=== PATIENT | female | born 1955 | race Caucasian/White ===

== ENCOUNTER 2020-08-23 08:59 | Outpatient (CLI) | payer MEDICARE, SELFPAY ==
--- NOTE | ~2020-08-23 | MM_ITS ---
EXAMINATION: MM screening theo BI w yogesh HISTORY: Screening mammogram TECHNIQUE: Craniocaudal and mediolateral oblique 3-D tomosynthesis images were obtained and synthetic 2-D images were generated. CAD analysis was submitted and interpreted. COMPARISON: 08/18/2019, 12/09/2017 bilateral digital screening mammogram examinations BREAST PARENCHYMAL COMPOSITION: There are scattered areas of fibroglandular density. FINDINGS: Occasional benign calcifications are noted bilaterally. There is no evidence of suspicious mass, calcification, or architectural distortion to suggest malignancy in either breast. There has be en no suspicious interval change. IMPRESSION: 1. No mammographic evidence of malignancy. 2. Recommend routine screening mammography in one year. BI-RADS Category 2: Benign finding(s). Reviewed, dictated and finalized at location A.
--- NOTE | ~2020-08-23 | CT_ITS ---
EXAMINATION: CT lung screening DATE: 08/23/2020 09:24 INDICATION: Smoker TECHNIQUE: Computed tomography (CT) of the chest was performed without intravenous contrast. The dose -length product was 64.27 mGy-cm. Automated exposure control and iterative reconstruction technique w ere employed. COMPARISON: CT dated 08/18/2019 FINDINGS: There is a borderline sized 9 mm right paratracheal lymph node, unchanged, likely reactive. No significant pleural or pericardial effusion. Heart size is normal. Mild emphysema. There is a 3 m m left upper lobe nodule, perifissural. There is a subsolid nodule in the left upper lobe measuring 3 -4 mm. There is apical pleural thickening/scarring. No endobronchial lesions. There is a 2 mm nodule left upper lobe, image 41. No focal airspace consolidation. No pneumothorax. No osteolytic or osteobl astic lesions. IMPRESSION: 1. Lung-RADS category 2: Benign appearance or behavior. Continue annual screening with noncontrast lo w-dose chest CT in 12 months. Reviewed, dictated and finalized at location A. IMPRESSION: 1. Lung-RADS category 2: Benign appearance or behavior. Continue annual screeni ng with noncontrast low-dose chest CT in 12 months.
--- NOTE | ~2020-08-23 | DEXA_ITS ---
Bone Density Report Name: Estela Hightower Age: 65 Sex: Female Ethnicity: White Date of : 1955 Indication: osteopenia;postmenopausal Referring Provider: Myles Lawson Study: Bone densitometry was performed. Exam Date: August 23, 2020 Accession number: [id number] Bone Density: Region BMD T-score Z-score Classification AP Spine (L1-L4) 0.870 -1.6 0.3 Osteopenia Femoral Neck (Left) 0.716 -1.2 0.4 Osteopenia Total Hip (Left) 0.826 -1.0 0.4 Normal Total Hip Bilateral Avg 0.806 -1.2 0.3 Osteopenia Femoral Neck (Right) 0.721 -1.1 0.5 Osteopenia Total Hip (Right) 0.786 -1.3 0.1 Osteopenia World Health Organization criteria for BMD impression classify patients as: Normal (T-score at or above -1.0), Osteopenia (T-score between -1.0 and -2.5), or Osteoporosis (T-score at or below -2.5). 10-year Fracture Risk(1): Major Osteoporotic Fracture 8.9% Hip Fracture 1.5% Reported Risk Factors: [place] (), Neck BMD=0.716, BMI=26.0, smoking (1) FRAX(R) Version 3.08. Fracture probability calculated for an untreated patient. Fracture probability may be lower if the patient has received treatment. Previous Exams: Region Exam Age BMD T-score BMD Change BMD Change Date g/cm2 vs Baseline vs Previous AP Spine(L1-L4) 08/23/2020 65 0.870 -1.6 -0.020(-2.2%) -0.020(-2.2%) 12/11/2017 62 0.889 -1.4 Total Hip(Left) 08/23/2020 65 0.826 -1.0 -0.010(-1.2%) -0.010(-1.2%) 12/11/2017 62 0.836 -0.9 Total Hip(Right) 08/23/2020 65 0.786 -1.3 -0.033(-4.0%)* -0.033(-4.0%)* 12/11/2017 62 0.819 -1.0 *Denotes significance at 95% confidence level, LSC for AP Spine = 0.022 g/cm2, LSC for Total Hip = 0.027 g/cm2 Clinical Information Provided by Patient: Smokes Has used the following medications: Vitamin D, Calcium Patient maximum height was 59.5 Menopause Age: 43 No regular weight bearing exercise Onset of menses at age 10 Number of children 2 Impression: The patient has low bone mass, based on the Total Spine T-score. The patient has an estimated ten-year risk of hip fracture of 1.5% and an estimated ten-year risk of major fracture of 8.9%, based on the WHO FRAX algorithm. The patient has risk factors, including: smoking. The BMD for the Total Hip(Right) decreased, changing by -4.0% since the last DXA exam. Discussion: BONE DENSITY IS LOW AT ONE OR MORE SKELETAL SITES. This patient's lowest T-score is low at one or more skeletal
== END 2020-08-23 09:00 | disposition home or self-care (01) ==
PROVIDERS: PCP Family Medicine; Visit Provider Physician Assistant
DX: Z12.2 Encounter for screening for malignant neoplasm of respiratory organs (principal); Z87.891 Personal history of nicotine dependence; Z12.31 Encounter for screening mammogram for malignant neoplasm of breast; Z78.0 Asymptomatic menopausal state; M85.88 Other specified disorders of bone density and structure, other site; M85.852 Other specified disorders of bone density and structure, left thigh; M85.851 Other specified disorders of bone density and structure, right thigh
CPT/HCPCS: 77063; 77067; 77080; G0297

== ENCOUNTER 2022-10-18 12:51 | Outpatient (CLI) | payer MEDICARE, SELFPAY ==
--- NOTE | ~2022-10-18 | CT_ITS ---
EXAMINATION: CT lung screening DATE: 10/18/2022 13:13 INDICATION: Personal history of nicotine dependence, current smoker with 50 pack year history TECHNIQUE: Computed tomography (CT) of the chest was performed without intravenous contrast. The dose -length product (DLP) was 64.84 mGy-cm. Automated exposure control and iterative reconstruction techn [employer] were employed. COMPARISON: 08/23/2020 FINDINGS: There is mild emphysema. There are multiple small stable nodules of the lungs. There is a n ew 3 mm nodule in the left upper lobe. The lungs are free of acute opacities. No pleural effusion or pneumothorax. No pathologically enlarged thoracic lymph nodes are identified. The heart size is shahana l. Calcified coronary artery atherosclerosis is noted. IMPRESSION: 1. Lung-RADS category 2: Benign appearance or behavior. Continue annual screening with noncontrast lo w-dose chest CT in 12 months. Reviewed, dictated and finalized at location F. N CONTRACT REPRESENTATIVE IMPRESSION: 1. Lung-RADS category 2: Benign appearance or behavior. Continue annual screeni ng with noncontrast low-dose chest CT in 12 months.
== END 2022-10-18 12:52 | disposition home or self-care (01) ==
PROVIDERS: PCP Family Medicine; Visit Provider Physician Assistant
DX: Z12.2 Encounter for screening for malignant neoplasm of respiratory organs (principal); Z87.891 Personal history of nicotine dependence
CPT/HCPCS: 71271

== ENCOUNTER 2022-12-18 14:00 | Outpatient (CLI) | payer MEDICARE, SELFPAY ==
--- NOTE | ~2022-12-18 | MM_ITS ---
EXAMINATION: MM screening theo BI w yogesh HISTORY: Screening mammogram TECHNIQUE: Craniocaudal and mediolateral oblique 3-D tomosynthesis images were obtained and synthetic 2-D images were generated. CAD analysis was submitted and interpreted. COMPARISON: 08/23/2020, 08/18/2019, 12/09/2017 BREAST PARENCHYMAL COMPOSITION: The breasts are heterogeneously dense, which may obscure small masses . FINDINGS: RIGHT BREAST: No suspicious mass, calcification, or architectural distortion are identified to sugges t malignancy. There has been no suspicious interval change. LEFT BREAST: There is a possible mass in the anterior/middle third of the inner left breast best appr eciated 5 cm from the nipple on the craniocaudal view. IMPRESSION: 1. Possible left breast mass. 2. Additional mammographic views and possible breast ultrasound are recommended. BI-RADS Category 0: Incomplete: Needs additional imaging evaluation. Reviewed, dictated and finalized at location A. THCARE CUSTOMER SERVICE IMPRESSION: 1. Possible left breast mass. 2. Additional mammographic views and possible breast ultrasound are recommended . BI-RADS Category 0: Incomplete: Needs additional imaging evaluation.
--- NOTE | ~2022-12-18 | DEXA_ITS ---
Bone Density Report Name: LAVINIA CAMPOS Age: 67 Sex: Female Ethnicity: White Date of : 1955 Indication: postmenopausal; screening for osteoporosis; height loss; Referring Provider: KEITH ORDONEZ Study: Bone densitometry was performed. Exam Date: December 18, 2022 Accession number: [id number] Bone Density: Region BMD T-score Z-score Classification AP Spine(L1-L4) 0.819 -2.1 0.0 Osteopenia Femoral Neck (Left) 0.669 -1.6 0.1 Osteopenia Total Hip (Left) 0.790 -1.2 0.2 Osteopenia Femoral Neck (Right) 0.544 -2.8 -1.0 Osteoporosis Total Hip (Right) 0.754 -1.5 -0.1 Osteopenia Total Hip Mean 0.772 -1.4 0.1 Osteopenia World Health Organization criteria for BMD impression classify patients as: Normal (T-score at or above -1.0), Osteopenia (T-score between -1.0 and -2.5), or Osteoporosis (T-score at or below -2.5). 10-year Fracture Risk: FRAX not reported because: Some T-score for Spine Total or Hip Total or Femoral Neck at or below -2.5 Clinical Information Provided by Patient: Smokes Has used the following medications: Vitamin D Patient maximum height was 59.5 Menopause Age: 38 No regular weight bearing exercise Does not regularly consume dairy products Drinks caffeinated beverages Onset of menses at age 8 Number of children 2 Impression: The patient has osteoporosis, based on the Right Femoral Neck T-score. The patient has risk factors, including: smoking. Discussion: INCREASED RISK OF FRACTURE. BONE DENSITY IS UNDESIRABLY LOW AT ONE OR MORE SKELETAL SITES, CONSISTENT WITH POSTMENOPAUSAL OSTEOPOROSIS. This patient's lowest T-score meets the World Health Organization's (WHO) criteria for osteoporosis at one or more sites (T-score -2.5 or below). In untreated patients, the risk of osteoporotic fracture increases approximately two-fold for each 1.0 SD decrease in T-score. Low bone density is not the only risk factor for fracture; also consider factors such as patient's age, frailty or poor health, risk of falling, risk of injury, previous osteoporotic fracture, family history of osteoporosis, cigarette smoking, low body weight, etc. Not everyone with low bone mineral density has osteoporosis; osteomalacia and other metabolic bone disorders should also be considered. Patients who have osteoporosis should be evaluated for specific diseases and conditions (secondary causes) that may cause or contribute to bone loss. The [place] Association of Clinical Endocrinologists (AACE) and National Osteoporosis Foundation (NOF) recommend pharmacologic intervention for all postmenopausal women whose T-score is in this range. The patient should follow a healthful lifestyle (good nutrition with adequate calcium and vitamin D, and appropriate weight-bearing exercise). Follow-Up: Consider a repeat BM
== END 2022-12-18 14:01 | disposition home or self-care (01) ==
PROVIDERS: PCP Family Medicine; Visit Provider Physician Assistant
DX: Z12.31 Encounter for screening mammogram for malignant neoplasm of breast (principal); R92.8 Other abnormal and inconclusive findings on diagnostic imaging of breast; M85.80 Other specified disorders of bone density and structure, unspecified site; M85.89 Other specified disorders of bone density and structure, multiple sites; M81.0 Age-related osteoporosis without current pathological fracture
CPT/HCPCS: 77063; 77067; 77080

== ENCOUNTER 2023-01-04 11:48 | Outpatient (CLI) | payer MEDICARE, SELFPAY ==
--- NOTE | ~2023-01-04 | MMUS_ITS ---
EXAMINATION: MM diagnostic theo LT w yogesh, US breast LT limited HISTORY: Follow-up left breast asymmetry TECHNIQUE: Additional 3-D tomosynthesis images of the left breast were performed and synthetic 2-D im ages were generated. CAD analysis was submitted and interpreted. High resolution Limited left breast ultrasound was performed. COMPARISON: 12/18/2022 BREAST PARENCHYMAL COMPOSITION: BREAST PARENCHYMAL COMPOSITION: There are scattered areas of fibroglandular density. FINDINGS: MAMMOGRAPHIC FINDINGS: There is a persistent focal asymmetry in the upper inner quadrant of the left breast, middle third wi th ill-defined margins. ULTRASOUND: Limited left breast ultrasound: At 11:00, 3 cm from the nipple, there is a slightly irregular shaped oval hypoechoic mass without internal vascularity or significant posterior features. This mass measur es 9 x 5 mm greatest axial dimension. IMPRESSION: 1. Irregular shaped 9 mm left breast mass at 11:00, 3 cm from the nipple. 2. Ultrasound-guided left breast biopsy recommended.. BI-RADS category 4, suspicious findings. Reviewed, dictated and finalized at location A. IRATORY TECHNICIAN IMPRESSION: 1. Irregular shaped 9 mm left breast mass at 11:00, 3 cm from the nipple. 2. Ultrasound-guided left breast biopsy recommended.. BI-RADS category 4, suspicious findings.
== END 2023-01-04 11:49 | disposition home or self-care (01) ==
LOC: ANHIMG 11:48
PROVIDERS: PCP Family Medicine; Visit Provider Physician Assistant
DX: R92.8 Other abnormal and inconclusive findings on diagnostic imaging of breast (principal)
CPT/HCPCS: 76642; 77061; 77065; G0279

== ENCOUNTER 2023-01-17 10:08 | Outpatient (CLI) | payer MEDICARE, SELFPAY ==
--- NOTE | ~2023-01-17 | MMUS_ITS ---
EXAMINATION: US GUIDED NEEDLE BIOPSY DATE: 01/17/2023 12:40 CASING INSPECTOR INDICATION: Left 11:00 breast mass TECHNIQUE AND FINDINGS: The risks and potential benefits of the procedure were discussed with the patient, and written inform ed consent was obtained. Timeout procedure was performed. After sterile preparation of the left breas t, 1% lidocaine was utilized for local anesthesia. A 14G spring-loaded biopsy gun needle was advanced to the edge of the region of interest from a later al approach utilizing sonographic guidance. A total of three tissue core samples were obtained throu gh the lesion. An Inrad tissue marker clip was then placed at the biopsy site. Hemostasis was achiev ed. A sterile bandage was applied. The patient tolerated procedure well and there was no evidence of immediate complication. The patien t was given verbal instructions prior to departing from the department. A two view mammogram was perf ormed to document tissue marker clip placement, but the tissue marker was not evident, not having suc cessfully deployed. Due to the presence of hematoma, accurate marker placement could not be a shared and no additional marker placement was attempted. The tissue samples were submitted to surgical patho logy for histologic analysis. IMPRESSION: 1. Successful ultrasound guided biopsy of left 11:00 breast mass with failure of biopsy marker place ment. Please refer to pathology report for histologic analysis. Reviewed, dictated and finalized at Location A. Reviewed, dictated and finalized at location A. NG INSPECTOR IMPRESSION: 1. Successful ultrasound guided biopsy of left 11:00 breast mass with failure of biopsy marker placement. Please refer to pathology report for histologic shamir lysis.
== END 2023-01-17 10:09 | disposition home or self-care (01) ==
PROVIDERS: PCP Family Medicine; Visit Provider Physician Assistant
DX: R92.8 Other abnormal and inconclusive findings on diagnostic imaging of breast (principal)
CPT/HCPCS: 19083; 88305; 88342; 88360; A4648

== ENCOUNTER 2023-04-10 06:54 | Day surgery (SDC) | payer MEDICARE, SELFPAY ==
[2023-04-04 09:35] VITALS: BMI 22.1
--- NOTE | 2023-04-04 09:54 | PC.NURSE ---
Report to the Outpatient Waiting Room, entrance under the green pavilion located off [facility], at time ____729___ on date ___04/10/23____. Planned Procedure Time: __1000 . (NEEDLE LOCALIZATION @ 0830) Time changes happen often and if your time is changed the preop area will call you the afternoon before. - You and your visitor will be asked to self-screen and do not enter if you have any COVID symptoms. - A mask is optional within the hospital at this time. Patients may have clear liquids (water, carbonated beverages, clear teas, apple juice) until 3 hours prior to surgery (0700 AM) with a maximum of 20 ounces. - No food from midnight until time of surgery - Infants may have breast milk until 4 hours before surgery, infant formula 6 hours prior to surgery. - Children will be allowed to drink immediately following surgery. If applicable, please bring a bottle or sippy cup to assist with drinking. Juice, water, soda, and popsicles are readily available. For infants on formula, please bring formula the day of surgery. Pacifiers are allowed. Take the following medications with a SIP of water the morning of surgery: AMLODIPINE, METOPROLOL DO NOT STOP ANY OF YOUR OTHER PRESCRIPTION MEDICATIONS PRIOR TO SURGERY ?EXCEPT THE FOLLOWING Medications to discontinue per physician N/A Date to take last dose Please no make-up, nail djiboutian, hairspray, perfume, deodorant, or body powder the day of surgery. No jewelry (including any body piercings) or valuables the day of surgery, leave them at home. Please take a shower or bath the night before, or the morning of, surgery with an antibacterial soap. Wear comfortable, loose fitting clothing. Children are encouraged to wear pajamas. - Jewelry must be removed prior to entering the operating room. Rings and piercings that are not removed may be cut off. - The hospital will not accept responsibility for valuables. - Please leave all valuables, including medications, at home the day of surgery. If you are going home after surgery, a licensed operator and truck driver must drive you home. - NO public transportation without another adult if you receive anesthesia. - We recommend that an adult stay with you for 24 hours following discharge. - We also recommend that you do not drive, make important decision, drink alcoholic beverages, or take any drugs that were not prescribed by your health care provider for at least 24 hours after your discharge time. For Pediatric surgeries, we recommend two adults accompany the child home. Follow any additional instructions given to you from your surgeon. If you or anyone in your household have experienced Covid symptoms in the past week, please notify your surgeon or the nurse liaison at the phone number below for possible testing. Telephone instructions given to ____PT and asked if any additional questions and then verbalized understanding. Patient advised to call surgeon office or pre surgery nurse liaison [phone] if any additional questions.
--- NOTE | 2023-04-09 18:45 | PM.SD2 ---
Same Day Admit/Disch: HPI History of Present Illness Chief complaint: left breast cancer Narrative: Estela iHghtower is a 67 year old female who was noted to have a 9mm upper inner quadrant (11:00) left breast lesion on US. 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 She developed a 4 cm hematoma of the breast after the biopsy. The hematoma has since resolved and patient is now taken to surgery for wire localization, left breast lumpectomy as well as left axillary sentinel node biopsy. [facility] Past Medical History Medical History Normal colonoscopy 2017 Stable angina Tobacco use Surgical History Surgical History History of repair of rotator cuff History of tonsillectomy History of tubal ligation Hx of breast biopsy Family History Family History Mother , age 65 Pancreatic cancer Hyperlipidemia Anemia Father Family history of elevated blood lipids Malignant neoplasm of prostate Bladder cancer Grandparent Cerebrovascular accident Family history of throat cancer Grandparent Cerebrovascular accident Family history of malignant neoplasm of urinary bladder Mother Family history of pancreatic cancer Father Family history of malignant neoplasm of urinary bladder Social History Social History Smoking packs per day: 0.5 Smoking cigarettes per day: 10.0 Years smoked: 30 Smoking pack-years: 15.00 Smoking status: Current every day smoker Tobacco type: cigarettes Alcohol intake: current Drinks per week: 6 Alcohol use details: WHITE WINE Substance use: never Substance use type: does not use Lack of Transportation: No Lack of Food: Never True Current Housing: I Have Housing Concerned About Future Housing: No Difficulty Paying Gas/Electric Bills: No Difficulty Paying for Meds: No Currently Unemployed: No Education: Master's Degree or Higher Difficulty w/ Childcare or Family Care: No Living arrangements: with family Spiritual care concerns: No Same Day Admit/Disch: Med Pre-admit Medications Home Medications Medication Instructions Recorded Confirmed Type cholecalciferol (vitamin D3) 25 1,000 unit PO DAILY 10/20/19 04/04/23 History mcg (1,000 unit) capsule metoprolol succinate 100 mg See Rx Instructions .Route 09/20/22 04/04/23 Rx tablet,extended release 24 hr .COMPLEX #90 tabs ezetimibe 10 mg tablet See Rx Instructions .Route 12/04/22 04/04/23 Rx .COMPLEX #90 tabs amlodipine 5 mg tablet See Rx Instructions .Route 03/25/23 04/04/23 Rx .COMPLEX #90 tabs ibuprofen 600 mg tablet 600 mg PO Q6H PRN pain #14 tabs 04/10/23 Rx oxycodone-acetaminophen 5 mg-325 0.5 - 1 tablet PO Q6H PRN pain #12 04/10/23 Rx mg tablet tabs Exam Const: General: cooperative, comfortable, no acute distress, alert, awake and thin Nutritional Appearance: thin Orientation/consciousness: patient oriented x3 and No confusion HENMT: Head: normocephalic and atraumatic Mouth: Yes Normal oral and palatal mucosa present Eyes: Conjunctivae: conjunctivae normal Pupils: Equal, round and reactive pupils present EOM: EOMs intact bilaterally Neck: Neck: normal visual inspection, no lymphadenopathy and nontender Chest: Breast/axilla inspection: normal inspection of the breasts and normal inspection of the axillae Breast/axilla palpation: normal palpation of the breasts (no residual bruising or hematoma left breast), normal palpation of the axillae and no axillary lymphadenopathy Resp: Effort & Inspection: normal respiratory effort Auscultation: clear to auscultation bilaterally Cardio: Rate: regular rate Rhythm: regular rhythm Heart sounds: no gallops, no murmurs and no rubs GI: Inspection: non-distended GI Palp: Yes Soft to palpation, No Tenderness to palpation present (GI), No
[2023-04-10] VITALS (7 sets, daily range): BP systolic 94–123; BP diastolic 56–72; PULSE 61–77; RESP 14–18; TEMP 36.4–37; O2SAT 96–100
--- NOTE | ~2023-04-10 | NM_ITS ---
EXAMINATION: NM sentinel node inject only INDICATION: Left breast cancer TECHNIQUE: 0.985 mCi Tc 99m Lymphoseek were injected in 4 aliquots in the upper outer quadrant of the breast near the areola. No images were obtained. IMPRESSION: 1. Status post left breast sentinel lymph node radiopharmaceutical injection. Reviewed, dictated and finalized at location A.
--- NOTE | ~2023-04-10 | MMUS_ITS ---
EXAMINATION: US breast needle loc LT, MM surgical specimen LT, MM post biopsy invasive LT INDICATION: Left breast cancer. TECHNIQUE: The procedure for a ultrasound-guided needle localization was discussed with the patient. Risks and benefits were detailed, including risks of bleeding and infection. The patient verbalized u nderstanding and agreed to proceed. A time out was performed to verify the patient's name, date of , and site of procedure. The skin overlying the left breast was prepared and draped in usual fashion. Utilizing ultrasound guidance, a needle was advanced into the mass at the 11:00 location, 3 cm from the nipple in the left breast. Co nfirmation of of wire position was performed with ultrasound and two-view left mammogram. The patient tolerated procedure without immediate complication. A specimen radiograph was performed. FINDINGS: Real-time ultrasound of the left breast demonstrates a needle with tip adjacent to the biop sy-proven left breast cancer. The localization wire and a subtle mass are contained within the surgi maribel specimen. IMPRESSION: 1. Successful ultrasound-guided left breast needle localization. Reviewed, dictated and finalized at location A. IMPRESSION: 1. Successful ultrasound-guided left breast needle localization. IMPRESSION: 1. Successful ultrasound-guided left breast needle localization.
--- NOTE | 2023-04-10 07:00 | WPDHPUPDATE1 ---
History and Physical Update Update Date/Time: 04/10/23 07:00 History and Physical has been reviewed, including an updated exam of the patient. There are NO changes in the patient's condition. Risks, benefits, and alternatives have been discussed and questions answered. Patient agrees to proceed with procedure.
[2023-04-10] MEDS: LACTATED RINGERS 1,000 ML 30 ML IV CONT ×2 (08:38→12:28)
--- NOTE | 2023-04-10 10:00 | WPDANESEPPF ---
Anes - Initial Pre Proc Eval Procedure: Operation Date: 04/10/23 10:00 Proposed Procedures p Left Breast Biopsy with Ultrasound And/Or Mammogram Guided Wire Needle Localization - Francesco Meeks MD s Left Breast Lumpectomy with Left Axillary Independence Lymph Node Biopsy - Francesco Meeks MD Date/Time: 04/10/23 10:00 Surgeon: Francesco Meeks MD Pre Op Diagnosis: left breast cancer Patient Data Age: 67 Gender: F Height: 1.47 m Weight: 49.8 kg Last Vital Signs Temp 36.4 C L 04/10/23 08:35 Pulse 69 04/10/23 08:35 Resp 14 04/10/23 08:35 BP 123/60 04/10/23 08:35 Pulse Ox 100 04/10/23 08:35 O2 Del Method Room Air 04/10/23 08:35 Allergies Allergy/AdvReac Type Severity Reaction Status Date / Time bupropion Allergy Unknown Nausea Verified 04/04/23 09:33 latex Allergy Unknown BLISTERS Verified 04/04/23 09:33 AROUND BANDAIDS AND TAPE pitavastatin Allergy Unknown ELEVATED Verified 04/04/23 09:33 LIVER LEVELS poison faraz extract Allergy Unknown Skin Verified 04/04/23 09:33 Reaction Spzryum-KXG-BzQ Reductase Allergy Unknown ELEVATED Verified 04/04/23 09:33 Inhibitor LIVER [Oyelhos-Qyz-Xfw Reductase LEVELS Inhibitor] alendronate sodium AdvReac Severe severe pain Verified 04/04/23 09:33 [From Fosamax] Home Medications Medication Instructions Recorded Confirmed Type cholecalciferol (vitamin D3) 25 1,000 unit PO DAILY 10/20/19 04/04/23 History mcg (1,000 unit) capsule metoprolol succinate 100 mg See Rx Instructions .Route 09/20/22 04/04/23 Rx tablet,extended release 24 hr .COMPLEX #90 tabs ezetimibe 10 mg tablet See Rx Instructions .Route 12/04/22 04/04/23 Rx .COMPLEX #90 tabs amlodipine 5 mg tablet See Rx Instructions .Route 03/25/23 04/04/23 Rx .COMPLEX #90 tabs Patient hx anesthesia problems: none Family hx anesthesia problems: none Results Review: All pre-operative results and documents have been reviewed as part of the pre-operative evaluation. [facility] Past Medical History Medical History Normal colonoscopy 2017 Stable angina Tobacco use Surgical History Surgical History History of repair of rotator cuff History of tonsillectomy History of tubal ligation Hx of breast biopsy Family History Family History Mother , age 65 Pancreatic cancer Hyperlipidemia Anemia Father Family history of elevated blood lipids Malignant neoplasm of prostate Bladder cancer Grandparent Cerebrovascular accident Family history of throat cancer Grandparent Cerebrovascular accident Family history of malignant neoplasm of urinary bladder Mother Family history of pancreatic cancer Father Family history of malignant neoplasm of urinary bladder Social History Social History Smoking packs per day: 0.5 Smoking cigarettes per day: 10.0 Years smoked: 30 Smoking pack-years: 15.00 Smoking status: Current every day smoker Tobacco type: cigarettes Alcohol intake: current Drinks per week: 6 Alcohol use details: WHITE WINE Substance use: never Substance use type: does not use Lack of Transportation: No Lack of Food: Never True Current Housing: I Have Housing Concerned About Future Housing: No Difficulty Paying Gas/Electric Bills: No Difficulty Paying for Meds: No Currently Unemployed: No Education: Master's Degree or Higher Difficulty w/ Childcare or Family Care: No Living arrangements: with family Spiritual care concerns: No Anes - Eval Final PreProcedure Day of Procedure 04/10/23 10:00 Patient weight: normal Heart: regular rate and rhythm Lungs: clear to auscultation Airway: Mallampati scale class II and special considerations retrognathia Neurological: alert and oriented Last oral intake: >/= 8 daija
[2023-04-10] MEDS: ceFAZolin 2 GM/D5W 50 ML 2 GM/50 ML BAG IVPB (10:05)
[2023-04-10] MEDS: KETOROLAC 15 MG/ML VIAL (*BKC) IV PUSH (10:05)
[2023-04-10] MEDS: ACETAMINOPHEN 500 MG TABLET 1000 MG PO (10:05)
[2023-04-10] MEDS: BUPIVACAINE/EPINEPHRINE 0.5% 50 ML VIAL INFILTRATE (10:50)
[2023-04-10] MEDS: ISOSULFAN BLUE 1% INJ 5 ML VIAL SUB-Q (10:52)
--- NOTE | 2023-04-10 11:33 | SUR.OPER ---
Left Axillary Lymph node specimens X3 sent fresh to lab and received by Julieta @ [id number]
--- NOTE | 2023-04-10 12:53 | SUR.PHASEI ---
1251: Simple mask removed.
--- NOTE | 2023-04-10 13:13 | W.PM.PROC2 ---
Procedure Note - Detailed Date of Procedure 04/10/23 Pre-op Diagnosis left breast cancer Post-op Diagnosis Same Procedure Performed Wire localization, left breast lumpectomy. Left axillary sentinel lymph node biopsy Surgeon Francesco Meeks MD Product Blending Supervisor Ellen Manzo [facility] Anesthesia General and Local (0.5% Marcaine with epinephrine) Indications Patient is a 67-year-old woman who had an abnormal lesion on breast imaging. This was a 9 mm lesion in the upper inner quadrant of the left breast at the 11 o'clock position. It was best seen on ultrasound. 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 She had a hematoma following the procedure. The hematoma has since resolved. She is taken to surgery now for wire localization left breast lumpectomy with left axillary sentinel lymph node biopsy. Findings Two sentinel lymph nodes were removed. Both had high isotope emission and did stain with the Isosulfan Blue dye. Some additional left axillary nodes were sent which seemed to have dye stained lymphatics heading towards them but were not having high enough isotope emission and did not stain dye to really be called sentinel lymph nodes. There were probably 2 additional lymph nodes sent besides the 2 sentinel lymph nodes. Specimen mammogram did confirm that the breast lesion was present in specimen. Description of Procedure The patient was taken to surgery and induced into general anesthesia. She had previously been in x-ray where wire localization had been performed as well as injection of the radioisotope under the left breast nipple. Left breast and left axilla were prepped and draped. Isosulfan Blue dye was injected deep to the nipple. Gentle breast massage was carried out. Using the navigator, the area of high isotope emission in the left axilla was identified. This was pretty much under the pectoralis major edge. The area was marked on the skin as was the anticipated incision. Local was infiltrated in the area of the anticipated axillary incision and in the deeper subcutaneous tissues. Incision was created and the dissection was carried down through the subcutaneous and into the axillary fat. I then again used the navigator and found the area where the high isotope emission was coming from. It also appeared to be in the medial aspect of the asked axilla and also under the pectoralis major. Dissection in this area revealed several dye stained lymphatics. The larger portion of these went to some lymph nodes that were not stained. I dissected these lymph nodes. Cautery was required as this was a pretty bloody dissection. Lymphatics were clipped and divided. Eventually I removed at least a couple of lymph nodes there were superficial in the axilla and appeared to be a be associated with dye stained lymphatics. These were removed and did not really have and a physis at opened mission and did not stain with blue dye to be considered left sentinel lymph nodes. They were sent as simply additional left axillary lymph nodes. We then looked again and do the axilla and found an area of high isotope emission a bit more medial than the previous dissection. On this occasion a dye stained lymph node was found. It was carefully dissected free from the surrounding tissues. Clips and cautery were used. Eventually it was excised completely. I recheck to its isotope admission it was quite high. This was sent as sentinel lymph node 1. I then palpated and looked again in the left axilla. The navigator was again placed. Deeper in the upper left axilla again somewhat under the pectoralis major and minor muscle was again located another high isotope admitting note. This was also dissected free using blunt and sharp dissection as well as cautery and clips were needed. This node did stain blue and had high isotope emission. It was sent as sentinel lymph node 2. I then checked further in the axilla. Even more medial I found some hi
[2023-04-10] MEDS: oxyCODONE HCL (*CRX) 5 MG TAB IR PO (13:38)
== END 2023-04-10 14:08 | disposition home or self-care (01) ==
PROVIDERS: PCP Family Medicine; Visit Provider Surgery
PROC: (CPT 19301; principal; 2023-04-10 10:00)
PROC: (CPT 19301; 2023-04-10 10:00)
DX: C50.212 Malignant neoplasm of upper-inner quadrant of left female breast (principal); F17.210 Nicotine dependence, cigarettes, uncomplicated
CPT/HCPCS: 19301; 38525; 19285; 38792; 76098; 88305; 88307; A9270; A9520; C1713; C1769; J0690; J1100; J1885; J2405; J2704; J3010; J7120

== ENCOUNTER 2023-07-17 12:00 | Outpatient (CLI) | payer MEDICARE, SELFPAY ==
[2023-07-17 12:23] LABS: Basophils Absolute Auto 0.1 K/mm3 (0.0-0.1); Basophils Percent Auto 0.9 % (0.2-1.2); Eosinophils Absolute Auto 0.1 K/mm3 (0-0.3); Eosinophils Percent Auto 1.6 % (0-4.4); Hematocrit 43.6 % (37.0-47.0); Hemoglobin 15.3 g/dL (12.0-15.0); Immature Granulocyte Absolute 0.02 K/mm3 (0.00-0.031); Immature Granulocyte Percent A 0.4 % (0-0.5); Lymphocytes Absolute Auto 1.27 K/mm3 (0.9-3.2); Lymphocytes Percent Auto 22.2 % (18.3-44.2); Mean Corpuscular HGB Conc 35.1 g/dl (32-36); Mean Corpuscular Hemoglobin 33.5 pg (26-34); Mean Corpuscular Volume 95.4 fl (80-100); Mean Platelet Volume 9.2 fl (7.4-10.4); Monocytes Absolute Auto 0.7 K/mm3 (0.1-0.6); Neutrophils Absolute Auto 3.5 K/mm3 (1.3-6.7); Neutrophils Percent Auto 61.9 % (45.5-73.1); Platelet Count Result 236 k/mm3 (150-375); Red Blood Count 4.57 M/mm3 (4.2-5.4); Red Cell Distribution Width 11.9 % (11.5-14.5); White Blood Count 5.7 K/mm3 (4.5-10.0)
[2023-07-17 16:33] LABS: Alanine Aminotransferase 24 U/L (6-35); Albumin Level 4.4 g/dL (3.5-5.1); Alkaline Phosphatase 81 U/L (38-126); Anion Gap 6 mmol/L (8-16); Aspartate Amino Transferase 42 U/L (14-36); Bilirubin,Total 0.6 mg/dL (0.2-1.3); Blood Urea Nitrogen 5 mg/dL (7-17); Calcium 9.4 mg/dL (8.4-10.2); Carbon Dioxide 27 mmol/L (22-30); Chloride 96 mmol/L (98-107); Estimated Glomerular Filt Rate > 60; Glucose 100 mg/dL (65-110); Potassium 5.1 mmol/L (3.4-5.0); Sodium 129 mmol/L (137-145)
[2023-07-21 11:36] LABS: CA 15-3 14 U/mL (<32)
== END 2023-07-17 12:01 | disposition home or self-care (01) ==
LOC: ANHLAB 12:03
PROVIDERS: PCP Family Medicine; Visit Provider Internal Medicine Hematology & Oncology
DX: C50.912 Malignant neoplasm of unspecified site of left female breast (principal); Z17.0 Estrogen receptor positive status [ER+]
CPT/HCPCS: 36415; 80053; 85025; 86300

== ENCOUNTER 2023-08-13 12:32 | Outpatient (CLI) | payer MEDICARE, SELFPAY ==
[2023-08-13 20:03] LABS: Anion Gap 6 mmol/L (8-16); Blood Urea Nitrogen 8 mg/dL (7-17); Calcium 9.3 mg/dL (8.4-10.2); Carbon Dioxide 30 mmol/L (22-30); Chloride 103 mmol/L (98-107); Estimated Glomerular Filt Rate > 60; Glucose 101 mg/dL (65-110); Potassium 3.8 mmol/L (3.4-5.0); Sodium 139 mmol/L (137-145)
== END 2023-08-13 12:33 | disposition home or self-care (01) ==
PROVIDERS: PCP Family Medicine; Visit Provider Family Medicine
DX: E87.1 Hypo-osmolality and hyponatremia (principal)
CPT/HCPCS: 36415; 80048

== ENCOUNTER 2023-10-09 08:14 | Outpatient (CLI) | payer MEDICARE, SELFPAY ==
[2023-10-09 08:29] LABS: Basophils Absolute Auto 0.1 K/mm3 (0.0-0.1); Basophils Percent Auto 1.1 % (0.2-1.2); Eosinophils Absolute Auto 0.1 K/mm3 (0-0.3); Hematocrit 41.7 % (37.0-47.0); Hemoglobin 13.9 g/dL (12.0-15.0); Immature Granulocyte Absolute 0.02 K/mm3 (0.00-0.031); Immature Granulocyte Percent A 0.3 % (0-0.5); Lymphocytes Absolute Auto 1.65 K/mm3 (0.9-3.2); Lymphocytes Percent Auto 25.8 % (18.3-44.2); Mean Corpuscular HGB Conc 33.3 g/dl (32-36); Mean Corpuscular Volume 96.1 fl (80-100); Mean Platelet Volume 9.8 fl (7.4-10.4); Monocytes Absolute Auto 0.7 K/mm3 (0.1-0.6); Monocytes Percent Auto 10.9 % (2.6-8.5); Neutrophils Absolute Auto 3.8 K/mm3 (1.3-6.7); Neutrophils Percent Auto 59.9 % (45.5-73.1); Platelet Count Result 201 k/mm3 (150-375); Red Blood Count 4.34 M/mm3 (4.2-5.4); Red Cell Distribution Width 11.7 % (11.5-14.5); White Blood Count 6.4 K/mm3 (4.5-10.0)
[2023-10-09 11:07] LABS: Alanine Aminotransferase 17 U/L (6-35); Albumin Level 4.5 g/dL (3.5-5.1); Alkaline Phosphatase 60 U/L (38-126); Anion Gap 6 mmol/L (8-16); Aspartate Amino Transferase 29 U/L (14-36); Bilirubin,Total 0.6 mg/dL (0.2-1.3); Blood Urea Nitrogen 11 mg/dL (7-17); Calcium 9.2 mg/dL (8.4-10.2); Carbon Dioxide 25 mmol/L (22-30); Chloride 105 mmol/L (98-107); Estimated Glomerular Filt Rate > 60; Glucose 115 mg/dL (65-110); Potassium 4.4 mmol/L (3.4-5.0); Sodium 136 mmol/L (137-145)
[2023-10-13 15:45] LABS: CA 15-3 13 U/mL (<32)
== END 2023-10-09 08:15 | disposition home or self-care (01) ==
LOC: ANHLAB 08:16
PROVIDERS: PCP Family Medicine; Visit Provider Internal Medicine Hematology & Oncology
DX: C50.912 Malignant neoplasm of unspecified site of left female breast (principal); Z17.0 Estrogen receptor positive status [ER+]
CPT/HCPCS: 36415; 80053; 85025; 86300

== ENCOUNTER 2023-10-19 07:59 | Outpatient (CLI) | payer MEDICARE, SELFPAY ==
--- NOTE | ~2023-10-19 | CT_ITS ---
EXAMINATION:CT lung screening DATE: 10/19/2023 08:17 INDICATION: Personal history of nicotine dependence. Current smoker with 50 pack year history. TECHNIQUE: Computed tomography (CT) of the chest was performed without intravenous contrast. Automate d exposure control and iterative reconstruction technique were employed. The dose-length product (DLP ) was 68.15 mGy-cm. COMPARISON: Chest CT 10/18/2022 FINDINGS: There is mild emphysema. There is mild scarring at the lung apices. There is a new 6 mm nod ule in left lung lower lobe. There are a few 2-3 mm pulmonary nodules, likely benign. No pleural effu guerline. The heart size is normal. There are coronary artery calcifications. No pericardial effusion. Th ere are surgical clips in left axilla. Aortic atherosclerosis is noted. There is mild thoracic spondy losis. IMPRESSION: 1. Lung-RADS category 4A: Suspicious. Noncontrast low-dose chest CT is recommended in 3 months. Reviewed, dictated and finalized at location E. MOTIVE TIRE TESTER IMPRESSION: 1. Lung-RADS category 4A: Suspicious. Noncontrast low-dose chest CT is recommen ded in 3 months.
== END 2023-10-19 08:00 | disposition home or self-care (01) ==
PROVIDERS: PCP Family Medicine; Visit Provider Family Medicine
DX: Z12.2 Encounter for screening for malignant neoplasm of respiratory organs (principal); F17.210 Nicotine dependence, cigarettes, uncomplicated; R91.8 Other nonspecific abnormal finding of lung field
CPT/HCPCS: 71271

== ENCOUNTER 2023-12-03 10:27 | Outpatient (CLI) | payer MEDICARE, SELFPAY ==
--- NOTE | ~2023-12-03 | MM_ITS ---
EXAMINATION: MM diagnostic theo BI w yogesh HISTORY: History of left breast cancer TECHNIQUE: Craniocaudal, mediolateral, and mediolateral oblique 3-D tomosynthesis images of the breas ts were performed and synthetic 2-D images were generated. CAD analysis was submitted and interpreted . COMPARISON: 01/04/2023,12/18/2022, 08/23/2020 BREAST PARENCHYMAL COMPOSITION: The breasts are heterogeneously dense, which may obscure small masses . FINDINGS: There are interval lumpectomy changes in the middle third of the inner left breast. No susp icious mass, calcification, or architectural distortion are identified in either breast to suggest ma lignancy. IMPRESSION: 1. Interval lumpectomy changes of the left breast without mammographic evidence of malignancy. 2. Recommend routine screening mammography in one year. BI-RADS Category 2: Benign finding(s). Reviewed, dictated and finalized at location A. MATCHER AND FITTER
== END 2023-12-03 10:28 | disposition home or self-care (01) ==
PROVIDERS: PCP Family Medicine; Visit Provider Internal Medicine Hematology & Oncology
DX: C50.912 Malignant neoplasm of unspecified site of left female breast (principal); R92.8 Other abnormal and inconclusive findings on diagnostic imaging of breast; Z17.0 Estrogen receptor positive status [ER+]
CPT/HCPCS: 77062; 77066; G0279

== ENCOUNTER 2024-01-13 08:15 | Outpatient (CLI) | payer MEDICARE, SELFPAY ==
[2024-01-13 08:49] LABS: Basophils Absolute Auto 0.1 K/mm3 (0.0-0.1); Basophils Percent Auto 0.7 % (0.2-1.2); Eosinophils Absolute Auto 0.1 K/mm3 (0-0.3); Eosinophils Percent Auto 1.2 % (0-4.4); Hematocrit 43.8 % (37.0-47.0); Hemoglobin 14.6 g/dL (12.0-15.0); Immature Granulocyte Absolute 0.02 K/mm3 (0.00-0.031); Immature Granulocyte Percent A 0.2 % (0-0.5); Lymphocytes Absolute Auto 1.22 K/mm3 (0.9-3.2); Lymphocytes Percent Auto 13.6 % (18.3-44.2); Mean Corpuscular HGB Conc 33.3 g/dl (32-36); Mean Corpuscular Hemoglobin 32.2 pg (26-34); Mean Corpuscular Volume 96.7 fl (80-100); Mean Platelet Volume 10.5 fl (7.4-10.4); Monocytes Absolute Auto 0.9 K/mm3 (0.1-0.6); Neutrophils Absolute Auto 6.7 K/mm3 (1.3-6.7); Neutrophils Percent Auto 74.3 % (45.5-73.1); Platelet Count Result 196 k/mm3 (150-375); Red Blood Count 4.53 M/mm3 (4.2-5.4); Red Cell Distribution Width 12.8 % (11.5-14.5)
[2024-01-13 14:24] LABS: Alanine Aminotransferase 14 U/L (6-35); Albumin Level 4.5 g/dL (3.5-5.1); Alkaline Phosphatase 63 U/L (38-126); Anion Gap 5 mmol/L (8-16); Aspartate Amino Transferase 34 U/L (14-36); Bilirubin,Total 0.6 mg/dL (0.2-1.3); Blood Urea Nitrogen 9 mg/dL (7-17); Calcium 9.8 mg/dL (8.4-10.2); Carbon Dioxide 27 mmol/L (22-30); Chloride 105 mmol/L (98-107); Estimated Glomerular Filt Rate > 60; Glucose 111 mg/dL (65-110); Potassium 4.5 mmol/L (3.4-5.0); Sodium 137 mmol/L (137-145)
[2024-01-16 07:30] LABS: CA 15-3 12 U/mL (<32)
== END 2024-01-13 08:16 | disposition home or self-care (01) ==
LOC: ANHLAB 08:18
PROVIDERS: PCP Family Medicine; Visit Provider Internal Medicine Hematology & Oncology
DX: C50.912 Malignant neoplasm of unspecified site of left female breast (principal); Z17.0 Estrogen receptor positive status [ER+]
CPT/HCPCS: 36415; 80053; 85025; 86300

== ENCOUNTER 2024-01-31 08:33 | Outpatient (CLI) | payer MEDICARE, SELFPAY ==
--- NOTE | ~2024-01-31 | CT_ITS ---
Clinical Indication: Lung nodule CT Scan of the Chest with Contrast: Technique: Contiguous sections were acquired throughout the chest after intravenous administration of 75 cc of Omnipaque 350. Dose reduction technique was used on this scan by utilizing automated exposu re control and iterative reconstruction technique. The dose-length product (DLP) was 143.50 mGy-cm. COMPARISON: 10/19/2023 Findings: There is no evidence of any significant mediastinal, hilar or axillary lymphadenopathy. There is no f illing defect in the pulmonary arterial tree to suggest pulmonary embolus. There is no evidence of ao rtic dissection or aneurysm. There is no evidence of pleural or pericardial effusion. Previous noted 6 mm left lower lobe pulmonary nodule is essentially completely resolved. No suspiciou s pulmonary abnormality seen currently. Images through the upper abdomen reveal no abnormalities. Impression: No suspicious pulmonary abnormality. Previously noted 6 mm left lower lobe pulmonary nodule is essent ially completely resolved. Reviewed, dictated and finalized at [facility]. HER ANALYST Impression: No suspicious pulmonary abnormality. Previously noted 6 mm left lower lobe pulm onary nodule is essentially completely resolved.
== END 2024-01-31 08:34 | disposition home or self-care (01) ==
PROVIDERS: PCP Family Medicine; Visit Provider Internal Medicine Hematology & Oncology
DX: R91.1 Solitary pulmonary nodule (principal)
CPT/HCPCS: 71260; Q9967

== ENCOUNTER 2024-06-01 11:55 | Outpatient (CLI) | payer MEDICARE, SELFPAY ==
[2024-06-01 12:24] LABS: Basophils Absolute Auto 0.1 K/mm3 (0.0-0.1); Basophils Percent Auto 0.9 % (0.2-1.2); Eosinophils Absolute Auto 0.1 K/mm3 (0-0.3); Eosinophils Percent Auto 2.1 % (0-4.4); Hemoglobin 13.5 g/dL (12.0-15.0); Immature Granulocyte Absolute 0.02 K/mm3 (0.00-0.031); Immature Granulocyte Percent A 0.3 % (0-0.5); Lymphocytes Absolute Auto 1.47 K/mm3 (0.9-3.2); Lymphocytes Percent Auto 22.3 % (18.3-44.2); Mean Corpuscular HGB Conc 32.9 g/dl (32-36); Mean Corpuscular Hemoglobin 32.4 pg (26-34); Mean Corpuscular Volume 98.3 fl (80-100); Mean Platelet Volume 10.4 fl (7.4-10.4); Monocytes Absolute Auto 0.6 K/mm3 (0.1-0.6); Monocytes Percent Auto 8.5 % (2.6-8.5); Neutrophils Absolute Auto 4.4 K/mm3 (1.3-6.7); Neutrophils Percent Auto 65.9 % (45.5-73.1); Platelet Count Result 202 k/mm3 (150-375); Red Blood Count 4.17 M/mm3 (4.2-5.4); Red Cell Distribution Width 11.6 % (11.5-14.5); White Blood Count 6.6 K/mm3 (4.5-10.0)
[2024-06-01 16:27] LABS: Alanine Aminotransferase 14 U/L (6-35); Albumin Level 4.3 g/dL (3.5-5.1); Alkaline Phosphatase 48 U/L (38-126); Anion Gap 5 mmol/L (4-12); Aspartate Amino Transferase 28 U/L (14-36); Bilirubin,Total 0.4 mg/dL (0.2-1.3); Blood Urea Nitrogen 12 mg/dL (7-17); Calcium 9.3 mg/dL (8.4-10.2); Carbon Dioxide 27 mmol/L (22-30); Chloride 105 mmol/L (98-107); Estimated Glomerular Filt Rate > 60; Glucose 174 mg/dL (65-110); Potassium 4.8 mmol/L (3.4-5.0); Sodium 137 mmol/L (137-145)
[2024-06-03 11:39] LABS: CA 15-3 12 U/mL (<32)
== END 2024-06-01 11:56 | disposition home or self-care (01) ==
PROVIDERS: PCP Family Medicine; Visit Provider Internal Medicine Hematology & Oncology
DX: C50.912 Malignant neoplasm of unspecified site of left female breast (principal); Z17.0 Estrogen receptor positive status [ER+]
CPT/HCPCS: 36415; 80053; 85025; 86300

== ENCOUNTER 2025-02-04 10:05 | Outpatient (CLI) | payer MEDICARE, SELFPAY ==
[2025-02-04 10:19] LABS: Basophils Absolute Auto 0.1 K/mm3 (0.0-0.1); Basophils Percent Auto 0.9 % (0.2-1.2); Eosinophils Absolute Auto 0.2 K/mm3 (0-0.3); Hematocrit 40.7 % (37.0-47.0); Hemoglobin 13.7 g/dL (12.0-15.0); Immature Granulocyte Absolute 0.03 K/mm3 (0.00-0.031); Immature Granulocyte Percent A 0.4 % (0-0.5); Lymphocytes Absolute Auto 1.65 K/mm3 (0.9-3.2); Lymphocytes Percent Auto 21.6 % (18.3-44.2); Mean Corpuscular HGB Conc 33.7 g/dl (32-36); Mean Corpuscular Hemoglobin 32.2 pg (26-34); Mean Corpuscular Volume 95.5 fl (80-100); Mean Platelet Volume 10.4 fl (7.4-10.4); Monocytes Absolute Auto 0.8 K/mm3 (0.1-0.6); Monocytes Percent Auto 9.8 % (2.6-8.5); Neutrophils Percent Auto 65.3 % (45.5-73.1); Platelet Count Result 205 k/mm3 (150-375); Red Blood Count 4.26 M/mm3 (4.2-5.4); Red Cell Distribution Width 11.9 % (11.5-14.5); White Blood Count 7.7 K/mm3 (4.5-10.0)
--- OUTSIDE RECORDS SUMMARY | 2025-02-04 11:26 | XMS_ITS | Clinical Summary ---
Author Organization [facility] Administrative Offices Address [address] [place] [address] Care Team Providers Care Brick Molder Hand Name Role Phone Corinna Hines MD Primary Care Provider [phone] Allergies Active Allergy Reactions Criticality Noted Date Comments Bupropion Nausea and Vomiting Low 07/10/2018 Latex Nausea and Vomiting Low 07/10/2018 Siwcwrf-Uzn-Xlu Reductase Inhibitors Unknown High 07/10/2018 Abnormal liver function tests Medications amLODIPine (NORVASC) 5 mg tablet Take 5 mg by mouth daily. Active ezetimibe (ZETIA) 10 mg tablet Take 10 mg by mouth daily. Active metoprolol succinate (TOPROL XL) 100 mg Extended Release 24 hour tablet Take 100 mg by mouth daily. Active CALCIUM CARBONATE-VITAMI N D3 ORAL Take by mouth. Active tamoxifen (NOLVADEX) 20 mg tablet Take 1 Tablet (20 mg) by mouth daily. 90 Tablet 3 06/16/2024 Active Active Problems No known active problems Encounters Date Type Department Care Team Description 02/02/2025 External Device Data [facility] ABSTRACTION Provider, Abstract 01/19/2025 External Device Data [facility] ABSTRACTION Provider, Abstract 12/24/2024 External Device Data [facility] ABSTRACTION Provider, Abstract 12/23/2024 External Device Data [facility] ABSTRACTION Provider, Abstract 12/22/2024 External Device Data [facility] ABSTRACTION Provider, Abstract 12/15/2024 External Device Data [facility] ABSTRACTION Provider, Abstract from Last 3 Months Family History Medical History Relation Name Comments Muscle Cancer Father Pancreatic Cancer Mother Relation Name Status Comments Brother 1 Alive Brother 2 Alive Daughter 1 Alive Daughter 2 Alive Father Mother Sister Alive Social History Tobacco Use Types Packs/Day Years Used Date Smoking Tobacco: Every Day Cigarettes 0.5 50.6 Started: 06/16/1974 Smokeless Tobacco: Never Tobacco Cessation:Ready to Q uit: Not Asked; Counseling Given: Not Answered Alcohol Use Standard Drinks/Week Comments Yes 0 (1 standard drink = 0.6 oz pur e alcohol) rare Comments Unknown Sex and Gender Information Value Date Recorded Sex Assigned at Not on file Legal Sex Female 10:52 PM CDT Gender Identity Not on file Sexual Orientation Not on file Last Filed Vital Signs Vital Sign Reading Time Taken Comments Blood Pressure 133/74 10/20/2024 2:33 PM CALL CENTER DISPATCHER Pulse 68 10/20/2024 2:29 PM CALL CENTER DISPATCHER Temperature 36.3 C (97.3 F) 10/20/2024 2:29 PM CALL CENTER DISPATCHER Respiratory Rate 14 10/20/2024 2:29 PM CALL CENTER DISPATCHER Oxygen Saturation 97% 10/20/2024 2:29 PM CALL CENTER DISPATCHER Inhaled Oxygen Concentration - - Weight 53.9 kg (118 lb 12.8 oz) 10/20/2024 2:29 PM CALL CENTER DISPATCHER Height 147.3 cm (4' 10 ) 05/17/2023 2:19 PM CDT Body Mass Index 24.83 05/17/2023 2:19 PM CDT Plan of Treatment Upcoming Encounters Date Type Department Care Team (Late st Contact Info) Description 02/15/2025 2:45 PM CDT Office Visit [facility] Oncology and Hematology - [place] [address] [facility] [address] [place] [address] Luis Tsang MD [address] [facility] [address] [place] [address] Health Maintenance Due Date Last Done Comments DTAP/TDAP/TD VACCINES (1 - Tdap) 1972 PNEUMOCOCCAL VACCINE 50+ YEARS (1 of 2 - PCV) 05/23/19 72 COLORECTAL SCREENING 1998 Colorectal Cancer Screening 1998 FIT-DNA Q 3 years 1998 FIT/FOBT Q 1 year 1998 Flex Sig/CT Colonography Q 5 years 1998 Lung Cancer Screening 2003 ZOSTER VACCINE (1 of 2) 2003 OSTEOPOROSIS SCREENING 2018 INFLUENZA VACCINE (#1) 2024 Medicare [place] ([place]) Prev entative Visit/Annual Wellness Visit 12/02/2024 BREAST CANCER SCREENING 12/03/2024 12/03/2023 RSV VACCINE (60+ or ) (1 - 1-dose 75+ series) 2028 Procedures Procedure Name Priority Date/Time Associated Diagnosis Comments MAMMO BILAT DIAGNOSTIC Routine 12/03/2023 10:12 AM CALL CENTER DISPATCHER from Last 3 Months or Most Recently Relevant to Health Maintenance Results * MAMMO BILAT DIAGNOSTIC (12/03/2023 10:12 AM CALL CENTER DISPATCHER) Anatomical Region Laterality Modality Breast Bilateral Other us Luis Tsang MD MAMMO ORDERABLES Final Result from Last 3 Months or Most Recently Relevant to Health Maintenance Insurance [facility] MCR Care Teams Brick Molder Hand Relationship Specialty Start Date End Date Corinna Hines MD [address] [place] [address] PCP - General Family Practice 05/17/23
--- OUTSIDE RECORDS SUMMARY | 2025-02-04 11:26 | XMS_ITS | Referral Summary ---
Author Organization [facility] [address] Address [address] [place] [address] Care Team Providers Care Medical Nurse Name Role Phone Corinna Hines MD Primary Care Provider + Allergies Active Allergy Reactions Criticality Noted Date Comments Latex Unknown 07/10/2018 Dbnwmdd-Sge-Cjs Reductase Inhibitors Other (See comments) High 07/10/2018 Abnormal liver function tests Bupropion Stomach upset Low 07/10/2018 Medications metoprolol XL (TOPROL-XL) 100 mg 24 hr tablet Take 1 tablet (100 mg total) by mouth daily Active diclofenac DR (VOLTAREN) 75 mg EC tablet Take 75 mg by mouth 2 (two) times a day. Active cyclobenzaprine (FLEXERIL) 10 mg tablet Take 10 mg by mouth daily as needed for muscle spasms. Active cholecalciferol (VITAMIN D-3) 2,000 unit capsule Take 1 capsule (2,000 Units total) by mouth daily Active pitavastatin calcium (LIVALO) 2 mg tablet Take 2 mg by mouth daily. 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 Tobacco abuse 07/10/2018 Mixed hyperlipidemia 07/10/2018 Statin intolerance 07/10/2018 Other fatigue 07/10/2018 Social History Tobacco Use Types Packs/Day Years Used Date Smoking Tobacco: Every Day Cigarettes Smokeless Tobacco: Never Tobacco Cessation:Ready to Q uit: Not Asked; Counseling Given: Not Answered Alcohol Use Standard Drinks/Week Comments Yes 0 (1 standard drink = 0.6 oz pur e alcohol) 12 per day 2-3 times a week Personal Safety Answer Date Recorded Getting School Help Needed Not on file 01/31 Comments Unknown Sex and Gender Information Value Date Recorded Sex Assigned at Not on file Legal Sex Female 7:56 AM LAWN AND GARDEN TECHNICIAN Gender Identity Not on file Sexual Orientation Not on file Last Filed Vital Signs Vital Sign Reading Time Taken Comments Blood Pressure 130/72 03/26/2023 1:14 PM CDT Pulse 73 03/26/2023 1:14 PM CDT Temperature - - Respiratory Rate - - Oxygen Saturation 99% 03/26/2023 1:14 PM CDT Inhaled Oxygen Concentration - - Weight 49.8 kg (109 lb 11.2 oz) 03/26/2023 1:14 PM CDT Height 147.3 cm (4' 10 ) 03/26/2023 1:14 PM CDT Body Mass Index 22.93 03/26/2023 1:14 PM CDT Plan of Treatment Not on file Insurance [facility]IC[facility] Address: [facility] [id number] [place] [address] Care Teams Medical Nurse Relationship Specialty Start Date End Date Mulligan, Corinna P., MD PCP - General Family Medicine 07/03/18
--- OUTSIDE RECORDS SUMMARY | 2025-02-04 11:26 | XMS_ITS | Encounter Summary ---
Author Organization [facility] Address [address] [facility] [address] [place] [address] Care Team Providers Care Director Of Golf Name Role Phone Corinna Hines MD Primary Care Provider + Encounter Details Date Type Department Care Team (Late st Contact Info) Description 07/15/2018 Orders Only [facility] Health Information Management [address] [place] [address] Scanning, Provider Social History Tobacco Use Types Packs/Day Years Used Date Smoking Tobacco: Every Day Cigarettes Smokeless Tobacco: Never Alcohol Use Standard Drinks/Week Comments Yes 0 (1 standard drink = 0.6 oz pur e alcohol) 12 per day 2-3 times a week Comments Unknown Sex and Gender Information Value Date Recorded Sex Assigned at Not on file Legal Sex Female 7:56 AM HEEL MOLDER Gender Identity Not on file Sexual Orientation Not on file documented as of this encounter Plan of Treatment Not on file documented as of this encounter Procedures Procedure Name Priority Date/Time Associated Diagnosis Comments CARDIOLOGY DOCUMENT SCAN 07/15/2018 documented in this encounter Results * CARDIOLOGY DOCUMENT SCAN (07/15/2018) Anatomical Region Laterality Modality Other us Provider Scanning CV CARDIAC SERVICES PROCEDURES Final Result documented in this encounter Visit Diagnoses Not on filedocumented in this encounter Care Teams Director Of Golf Relationship Specialty Start Date End Date Corinna Hines MD PCP - General Family Medicine 07/03/18 documented as of this encounter
--- OUTSIDE RECORDS SUMMARY | 2025-02-04 11:26 | XMS_ITS | Encounter Summary ---
Author Organization [facility] Address [address] [place] [address] Care Team Providers Care Agricultural Equipment Operator Name Role Phone Corinna Hines MD Primary Care Provider [phone] Encounter Details Date Type Department Care Team (Late Contact Info) Description 02/02/2025 External Device Data [facility] ABSTRACTION Provider, Abstract NO ADDRESS ON FILE Social History Tobacco Use Types Packs/Day Years Used Date Smoking Tobacco: Every Day Cigarettes 0.5 50.6 Started: 06/16/1974 Smokeless Tobacco: Never Alcohol Use Standard Drinks/Week Comments Yes 0 (1 standard drink = 0.6 oz pur e alcohol) rare Comments Unknown Sex and Gender Information Value Date Recorded Sex Assigned at Not on file Legal Sex Female 10:52 PM CDT Gender Identity Not on file Sexual Orientation Not on file documented as of this encounter Plan of Treatment Upcoming Encounters Date Type Department Care Team (Late st Contact Info) Description 02/15/2025 2:45 PM CDT Office Visit [facility] Oncology and Hematology - [place] [address] [facility] [address] [place] [address] Luis Tsang MD [address] [facility] [address] [place] [address] documented as of this encounter Visit Diagnoses Not on filedocumented in this encounter Care Teams Agricultural Equipment Operator Relationship Specialty Start Date End Date Corinna Hines MD [address] [place] [address] [address] [place] [address] PCP - General Family Practice 05/17/23 documented as of this encounter
--- OUTSIDE RECORDS SUMMARY | 2025-02-04 11:26 | XMS_ITS | Clinical Summary ---
Author Organization [facility] [address] Address [address] [place] [address] Care Team Providers Care Semiconductor Package Symbol Stamper Name Role Phone Corinna Hines MD Primary Care Provider + Allergies Active Allergy Reactions Criticality Noted Date Comments Latex Unknown 07/10/2018 Gpjdcin-Ahg-Hsg Reductase Inhibitors Other (See comments) High 07/10/2018 [...] 07/10/2018 Statin intolerance 07/10/2018 Other fatigue 07/10/2018 Surgical History Surgery Date Site/Laterality Comments ROTATOR CUFF REPAIR Medical History Medical History Date Comments Hypertension Hyperlipidemia Anxiety Depression Emphysema lung (HCC) Breast cancer (HCC) Family History Medical History Relation Name Comments Cancer Father Pancreatic cancer Mother Relation Name Status Comments Father (Age 82) Mother (Age 59) Social History Tobacco Use Types Packs/Day Years [...] on file Legal Sex Female 7:56 AM SYSTEMS ADMIN Gender Identity Not on file Sexual Orientation Not on file Obstetrics History Last Filed Vital Signs Vital Sign Reading [...] 03/26/2023 1:14 PM CDT Plan of Treatment Health Maintenance Due Date Last Done Comments Breast Cancer Screening-Mammogram 1953 Colon Cancer Screening-Colonoscopy 1955 Depression Screening 1953 Fall Risk Assessment 1955 Hepatitis C Screening 1955 Osteoporosis Screening-Bone Density Scan 1953 DTaP/Tdap/Td Vaccine (1 - Tdap) 1964 Hepatitis B Screening 1971 Well Visit 65+ 2018 Covid-19 Vaccine (2023-2 5 season) 2024 09/07/2022, 03/20/2022, 09/11/2021, Additional history exists Influenza Vaccine (#1) 2024 , 09/11/2021, 08/12/2020, Additional history exists Zoster Vaccine Completed 10/30/2019, 07/31/2019 Pneumococcal vaccine 65+ Completed 06/21/2020, 06/01 Insurance T MEDICARE Care Teams Semiconductor Package Symbol Stamper Relationship Specialty Start Date End Date Corinna Hines MD PCP - General Family Medicine 07/03/18
[2025-02-04 12:32] LABS: Alanine Aminotransferase 16 U/L (6-35); Albumin Level 4.3 g/dL (3.5-5.1); Alkaline Phosphatase 54 U/L (38-126); Anion Gap 13 mmol/L (4-12); Aspartate Amino Transferase 30 U/L (14-36); Bilirubin,Total 0.6 mg/dL (0.2-1.3); Blood Urea Nitrogen 6 mg/dL (7-17); Calcium 9.4 mg/dL (8.4-10.2); Carbon Dioxide 24 mmol/L (22-30); Chloride 103 mmol/L (98-107); Estimated Glomerular Filt Rate > 60; Glucose 105 mg/dL (65-110); Potassium 4.5 mmol/L (3.4-5.0); Sodium 140 mmol/L (137-145)
[2025-02-05 11:35] LABS: CA 15-3 11 U/mL (<32)
== END 2025-02-04 10:06 | disposition home or self-care (01) ==
LOC: ANHLAB 10:06
PROVIDERS: PCP Family Medicine; Visit Provider Internal Medicine Hematology & Oncology
DX: C50.912 Malignant neoplasm of unspecified site of left female breast (principal); Z17.0 Estrogen receptor positive status [ER+]
CPT/HCPCS: 36415; 80053; 85025; 86300

== ENCOUNTER 2025-02-22 13:42 | Outpatient (CLI) | payer MEDICARE, SELFPAY ==
--- NOTE | ~2025-02-22 | CT_ITS ---
EXAMINATION:CT lung screening DATE: 02/22/2025 14:08 INDICATION: Nicotine dependence. Current smoker with 25 pack year history. TECHNIQUE: Computed tomography (CT) of the chest was performed without intravenous contrast. Automate d exposure control and iterative reconstruction technique were employed. The dose-length product (DLP ) was 61.43 mGy-cm. COMPARISON: Chest CT 01/31/2024 FINDINGS: There is mild emphysema. There is a 3 mm nodule in right upper lobe. There is stable mild s carring at the lung apices. There is mild peripheral radiation fibrosis in left lung anteriorly. No p leural effusion. The heart size is normal. No pericardial effusion. There are surgical clips in left axilla. There is mild thoracic spondylosis. IMPRESSION: 1. Lung-RADS category 2: Benign appearance or behavior. Continue annual screening with noncontrast lo w-dose chest CT in 12 months. Reviewed, dictated and finalized at location A. IMPRESSION: 1. Lung-RADS category 2: Benign appearance or behavior. Continue annual screeni ng with noncontrast low-dose chest CT in 12 months.
--- OUTSIDE RECORDS SUMMARY | 2025-02-22 15:42 | XMS_ITS | Clinical Summary ---
Author Organization [facility] [address] Address [address] [place] [address] Care Team Providers Care School Teacher Name Role Phone Corinna Hines MD Primary Care Provider + Allergies Active Allergy Reactions Criticality Noted Date Comments Latex Unknown 07/10/2018 Ddnwnst-Mwo-Sep Reductase Inhibitors Other (See comments) High 07/10/2018 [...] on file Legal Sex Female 7:56 AM AUTOMOBILE BODY REPAIR SUPERVISOR Gender Identity Not on file Sexual Orientation [...] 06/21/2020, 06/01 Insurance T MEDICARE Care Teams School Teacher Relationship Specialty Start Date End Date Corinna Hines MD PCP - General Family Medicine 07/03/18
--- OUTSIDE RECORDS SUMMARY | 2025-02-22 15:43 | XMS_ITS | Clinical Summary ---
Author Organization [facility] Administrative Offices Address [address] [place] [address] Care Team Providers Care Training Lead Name Role Phone Corinna Hines MD Primary Care Provider [phone] Allergies Active Allergy Reactions Criticality Noted Date Comments Bupropion Nausea and Vomiting Low 07/10/2018 Latex Nausea and Vomiting Low 07/10/2018 Evoxzqu-Vrm-Nwd Reductase Inhibitors Unknown High 07/10/2018 Abnormal liver function tests Medications amLODIPine (NORVASC) 5 mg tablet Take 5 mg by mouth daily. Active ezetimibe (ZETIA) 10 mg tablet Take 10 mg by mouth daily. Active metoprolol succinate (TOPROL XL) 100 mg Extended Release 24 hour tablet Take 100 mg by mouth daily. Active CALCIUM CARBONATE-VITAM IN D3 ORAL Take by mouth. Active tamoxifen (NOLVADEX) 20 mg tablet Take 1 Tablet (20 mg) by mouth daily. 90 Tablet 3 5 Active tamoxifen (NOLVADEX) 20 mg tablet Take 1 Tablet (20 mg) by mouth daily. 90 Tablet 3 4 02/16/20 25 Discontinu ed(Reorder ) Active Problems No known active problems Encounters Date Type Department Care Team Description 02/17/2025 External Device Data STL ABSTRACTION Provider, Abstract 02/15/2025 2:45 PM CDT Office Visit [facility] Oncology and Hematology - [place] [address] [place] [address] Luis Tsang MD Screening for lung cancer (Primary Dx); Malignant neoplasm of left breast in female, estrogen receptor positive, unspecified site of breast (CMS/HCC) 02/08/[address] [facility] Oncology and Hematology - [place] [address] [place] [address] Luis Tsang MD 02/06/2025 External Device Data STL ABSTRACTION Provider, Abstract 02/05/2025 External Device Data STL ABSTRACTION Provider, Abstract 02/05/[address] [facility] Oncology and Hematology - [place] [address] [place] [address] Luis Tsang MD 02/04/[address] [facility] Oncology and Hematology - [place] [address] [place] [address] Luis Tsang MD 02/02/2025 External Device Data STL ABSTRACTION Provider, [...] Date Smoking Tobacco: Every Day Cigarettes 0.5 50.7 Started: 06/16/1974 Smokeless Tobacco: Never Tobacco Cessation:Ready [...] Sign Reading Time Taken Comments Blood Pressure 132/71 02/15/2025 2:12 PM CDT Pulse 63 02/15/2025 2:12 PM CDT Temperature 35.8 C (96.5 F) 02/15/2025 2:12 PM CDT Respiratory Rate 15 02/15/2025 2:12 PM CDT Oxygen Saturation 97% 02/15/2025 2:12 PM CDT Inhaled Oxygen Concentration - - Weight 54.1 kg (119 lb 3.2 oz) 02/15/2025 2:12 P M CDT Height 147.3 cm (4' 10 ) 05/17/2023 2:19 PM CDT Body Mass Index 24.91 05/17/2023 2:19 PM CDT Plan of Treatment Upcoming Encounters Date Type Department Care Team (Late st Contact Info) Description 06/17/2025 2:30 PM CDT Office Visit [facility] Oncology and Hematology - [place] [address] [facility] [[email or web address] [address] [place] [address] Luis Tsang MD [address] [facility] [address] [place] [address] Health Maintenance Due Date Last [...] OSTEOPOROSIS SCREENING 2018 INFLUENZA VACCINE (#1) 2024 BREAST CANCER SCREENING 12/03/2024 12/03/2023 RSV VACCINE (60+ or ) (1 - 1-dose 75+ series) 2028 Procedures Procedure Name Priority Date/Time Associated Diagnosis Comments CBC WITH AUTODIFFERENTIAL Routine 2024 2:22 PM EXCELLENCE CONSULTANT CHG CA 15 3 Routine 02/04/2025 11:03 AM EXCELLENCE CONSULTANT COMPREHENSIVE METABOLIC PANEL Routine 02/04/2025 8:36 AM EXCELLENCE CONSULTANT MAMMO BILAT DIAGNOSTIC Routine 10:12 AM EXCELLENCE CONSULTANT from Last 3 Months or Most Recently Relevant to Health Maintenance Results * CBC WITH AUTODIFFERENTIAL (02/04/2025 2:22 PM EXCELLENCE CONSULTANT) Blood us Luis Tsang MD HEMATOLOGY ORDERABLES Final Res ult * CHG CA 15 3 (02/04/2025 11:03 AM EXCELLENCE CONSULTANT) us Luis Tsang MD CHG - LABORATORY Final Result * COMPREHENSIVE METABOLIC PANEL (02/04/2025 8:36 AM EXCELLENCE CONSULTANT) Blood us Luis Tsang MD CHEMISTRY ORDERABLES Final Resu lt * MAMMO BILAT DIAGNOSTIC (12/03/2023 10:12 AM EXCELLENCE CONSULTANT) Anatomical Region Laterality Modality Breast Bilateral Mammography us Luis Tsang MD MAMMO ORDERABLES Final Result from Last 3 Months or Most Recently Relevant to Health Maintenance [facility] Care Teams Training Lead Relationship Specialty Start Date End Date Corinna Hines MD [facility] [place] [address] PCP - General Family Practice 05/17/23
--- OUTSIDE RECORDS SUMMARY | 2025-02-22 15:43 | XMS_ITS | Referral Summary ---
Author Organization 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
--- OUTSIDE RECORDS SUMMARY | 2025-02-22 15:43 | XMS_ITS | Encounter Summary ---
Author Organization [facility] Address [address] [place] [address] Care Team Providers Care Real Estate Leasing Manager Name Role Phone Corinna Hines MD Primary Care Provider + Encounter Details Date Type Department Care Team (Late st Contact Info) Description 07/15/2018 Orders Only [facility] Health Information Management [address] [place] [address] Scanning, Provider Social History Tobacco Use Types Packs/Day Years Used Date Smoking Tobacco: Every Day Cigarettes Smokeless Tobacco: Never Alcohol Use Standard Drinks/Week Comments Yes 0 (1 standard drink = 0.6 oz pur e alcohol) 12 per day 2-3 times a week Comments Unknown Sex and Gender Information Value Date Recorded Sex Assigned at Not on file 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
== END 2025-02-22 13:43 | disposition home or self-care (01) ==
PROVIDERS: PCP Family Medicine; Visit Provider Internal Medicine Hematology & Oncology
DX: Z12.2 Encounter for screening for malignant neoplasm of respiratory organs (principal); F17.210 Nicotine dependence, cigarettes, uncomplicated
CPT/HCPCS: 71271

== ENCOUNTER 2025-04-02 08:13 | Outpatient (CLI) | payer MEDICARE, SELFPAY ==
--- NOTE | ~2025-04-02 | MM_ITS ---
EXAMINATION: MM screening theo BI w yogesh HISTORY: Screening TECHNIQUE: Craniocaudal and mediolateral oblique 3-D tomosynthesis images were obtained and synthetic 2-D images were generated. CAD analysis was submitted and interpreted. COMPARISON: Comparison to multiple prior studies sequentially, with oldest reviewed study dated 12/18 there are lumpectomy changes in the upper inner quadrant of the left breast which are not signi ficantly changed from prior studies allowing for technique. BREAST PARENCHYMAL COMPOSITION: Dense: The breasts are heterogeneously dense, which may obscure small masses FINDINGS: There are lumpectomy changes in the upper inner quadrant of the left breast which are not s ignificantly changed compared with 12/03/2023 allowing for differences of technique. No new masses, maribel cifications or architectural distortion to suggest malignancy. IMPRESSION: 1. No mammographic evidence of malignancy. 2. Recommend routine screening mammography in one year. BI-RADS Category 2: Benign finding(s). Reviewed, dictated and finalized at location A.
--- OUTSIDE RECORDS SUMMARY | 2025-04-03 11:01 | XMS_ITS | Encounter Summary ---
Author Organization [facility] Address [address] [place] [address] Care Team Providers Care Reimbursement Director Name Role Phone Corinna Hines MD Primary Care Provider + Encounter Details Date Type Department Care Team (Late st Contact Info) Description 07/15/2018 Orders Only [facility] Health Information Management [address] [place] [address] Scanning, Provider Social History Tobacco Use Types Packs/Day Years Used Date Smoking Tobacco: Every Day Cigarettes Smokeless Tobacco: Never Alcohol Use Standard Drinks/Week Comments Yes 0 (1 standard drink = 0.6 oz pur e alcohol) 12 per day 2-3 times a week Comments Unknown Sex and Gender Information Value Date Recorded Sex Assigned at Not on file 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
--- OUTSIDE RECORDS SUMMARY | 2025-04-03 11:01 | XMS_ITS | Referral Summary ---
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
--- OUTSIDE RECORDS SUMMARY | 2025-04-03 11:01 | XMS_ITS | Clinical Summary ---
Author Organization [facility] Administrative Offices Address [address] [place] [address] Care Team Providers Care Corporate Banking Officer Name Role Phone Corinna Hines MD Primary Care Provider [phone] Allergies Active Allergy Reactions Criticality Noted Date Comments Bupropion Nausea and Vomiting Low 07/10/2018 Latex Nausea and Vomiting Low 07/10/2018 Vqxvpvd-Ftu-Krd Reductase Inhibitors Unknown High 07/10/2018 Abnormal liver [...] mg) by mouth daily. 90 Tablet 3 02/15/2025 Active Active Problems No known active problems Encounters Date Type Department Care Team Description 04/02/2025 Orders Only [facility] Oncology and Hematology [facility] [address] [place] [address] Luis Tsang MD 02/17/2025 External Device Data STL ABSTRACTION Provider, Abstract 02/15/2025 2:45 PM CDT Office Visit [facility] Oncology and Hematology [facility] [address] [place] [address] Luis Tsang MD Screening for lung cancer (Primary Dx); Malignant neoplasm of left breast in female, estrogen receptor positive, unspecified site of breast ([facility]/HCC) 02/08/2025 Orders Only [facility] Oncology and Hematology - [place] [address] [place] [address] Luis Tsang MD 02/06/2025 External Device Data STL ABSTRACTION Provider, Abstract 02/05/2025 External Device Data STL ABSTRACTION Provider, Abstract 02/05/2025 Orders Only [facility] Oncology and Hematology - [place] [address] [place] [address] Luis Tsang MD 02/04/2025 Orders Only [facility] Oncology and Hematology - [place] [address] [place] [address] Luis Tsang MD 02/02/2025 External Device Data [...] Date Smoking Tobacco: Every Day Cigarettes 0.5 50.8 Started: 06/16/1974 Smokeless Tobacco: Never Tobacco Cessation:Ready [...] Description 06/17/2025 2:30 PM CDT Office Visit [facility] Oncology and Hematology [facility] [address] [facility] [address] [place] [address] Luis Tsang MD [address] [facility] [address] [address] [place] [address] Health Maintenance Due Date Last Done Comments DTAP/TDAP/TD VACCINES (1 - Tdap) 1972 PNEUMOCOCCAL VACCINE 50+ YEA RS (1 of 2 - PCV) 1972 COLORECTAL SCREENING 1998 Colorectal Cancer Screening 1998 FIT-DNA Q 3 years 1998 FIT/FOBT Q 1 year 1998 Flex Sig/CT Colonography Q 5 years 1998 Lung Cancer Screening 2003 ZOSTER VACCINE (1 of 2) 2003 OSTEOPOROSIS SCREENING 2018 INFLUENZA VACCINE (#1) 2024 BREAST CANCER SCREENING 04/02/2026 04/02/2025, 12/03 RSV VACCINE (60+ or ) (1 - 1-dose 75+ series) 2028 Procedures Procedure Name Priority Date/Time Associated Diagnosis Comments MAMMO SCREENING BILAT Routine 04/02/2025 11:31 AM CDT CBC WITH AUTODIFFERENTIAL Routine 2024 2:22 PM ARTIST CONSULTANT CHG CA 15 3 Routine 02/04/2025 11:03 AM ARTIST CONSULTANT COMPREHENSIVE METABOLIC PANEL Routine 02/04/2025 8:36 AM ARTIST CONSULTANT from Last 3 Months Results * MAMMO SCREENING BILAT (04/02/2025 11:31 AM CDT) Anatomical Region Laterality Modality Breast Bilateral Mammography Luis Tsang MD MAMMO ORDERABLES Final Result * CBC WITH AUTODIFFERENTIAL (02/04/2025 2:22 PM ARTIST CONSULTANT) Blood us Luis Tsang MD HEMATOLOGY ORDERABLES Final Res ult * CHG CA 15 3 (02/04/2025 11:03 AM ARTIST CONSULTANT) us Luis Tsang MD CHG - LABORATORY Final Result * COMPREHENSIVE METABOLIC PANEL (02/04/2025 8:36 AM ARTIST CONSULTANT) Blood us Luis Tsang MD CHEMISTRY ORDERABLES Final Resu lt from Last 3 Months Insurance [facility] Care Teams Corporate Banking Officer Relationship Specialty Start Date End Date Corinna Hines MD [facility] [facility] [address] [place] [address] PCP - General Family Practice 05/17/23
--- OUTSIDE RECORDS SUMMARY | 2025-04-03 11:01 | XMS_ITS | Clinical Summary ---
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
== END 2025-04-02 08:14 | disposition home or self-care (01) ==
LOC: ANHIMG 08:16
PROVIDERS: PCP Family Medicine; Visit Provider Internal Medicine Hematology & Oncology
DX: Z12.31 Encounter for screening mammogram for malignant neoplasm of breast (principal)
CPT/HCPCS: 77063; 77067

== ENCOUNTER 2025-06-03 08:42 | Outpatient (CLI) | payer MEDICARE, SELFPAY ==
--- OUTSIDE RECORDS SUMMARY | 2025-06-03 08:45 | XMS_ITS | Clinical Summary ---
Author Organization [facility] Administrative Offices Address [address] [place] [address] Care Team Providers Care Hog Tender Name Role Phone Corinna Hines MD Primary Care Provider [phone] Allergies Active Allergy Reactions Criticality Noted Date Comments Bupropion Nausea and Vomiting Low 07/10/2018 Latex Nausea and Vomiting Low 07/10/2018 Fibtnzk-Tyk-Pji Reductase Inhibitors Unknown High 07/10/2018 Abnormal liver [...] Encounters Date Type Department Care Team Description 05/25/2025 External Device Data STL ABSTRACTION Provider, Abstract 05/18/2025 External Device Data STL ABSTRACTION Provider, Abstract 04/27/2025 External Device Data STL ABSTRACTION Provider, Abstract 04/22/2025 External Device Data STL ABSTRACTION Provider, Abstract 04/21/2025 External Device Data STL ABSTRACTION Provider, Abstract 04/21/2025 External Device Data STL ABSTRACTION Provider, Abstract 04/20/2025 External Device Data STL ABSTRACTION Provider, Abstract 04/02/2025 Orders Only [facility] Oncology and Hematology - [place] [address] [place] [address] Luis Tsang MD from Last 3 Months Family History Medical History Relation Name Comments Muscle Cancer Father Pancreatic Cancer Mother Relation Name Status Comments Brother 1 Alive Brother 2 Alive Daughter 1 Alive Daughter 2 Alive Father Mother Sister Alive Social History Tobacco Use Types Packs/Day Years Used Date Smoking Tobacco: Every Day Cigarettes 0.5 51 Started: 06/16/1974 Smokeless Tobacco: Never Tobacco Cessation:Ready [...] P M CDT Height 147.3 cm (4' 10) 05/17/2023 2:19 PM CDT Body Mass Index 24.91 05/17/2023 2:19 PM CDT Plan of Treatment Upcoming Encounters Date Type Department Care Team (Late st Contact Info) Description 06/17/2025 2:30 PM CDT Office Visit [facility] Oncology and Hematology - [place] [facility] [address] [place] [address] Luis Tsang MD [address] [facility] [address] [place] [address] Health Maintenance Due Date Last Done Comments DTAP/TDAP/TD VACCINES (1 - Tdap) 1972 PNEUMOCOCCAL VACCINE 50+ YEA RS (1 of 2 - PCV) 1972 COLORECTAL SCREENING 1998 Colorectal Cancer Screening 1998 FIT-DNA Q 3 years 1998 FIT/FOBT Q 1 year 1998 Flex Sig/CT Colonography Q 5 years 1998 Lung Cancer Screening 2003 ZOSTER VACCINE (1 of 2) 2003 OSTEOPOROSIS SCREENING 2018 Medicare Ad[place]) Prev entative Visit/Annual Wellness Visit 12/02/2024 INFLUENZA VACCINE (#1) 2025 BREAST CANCER SCREENING 04/02/2026 04/02/2025, 12/03 RSV VACCINE (60+ or ) (1 - 1-dose 75+ series) 2028 Procedures Procedure Name Priority Date/Time Associated Diagnosis Comments MAMMO SCREENING BILAT Routine 04/02/2025 11:31 AM CDT from Last 3 Months Results * MAMMO SCREENING BILAT (04/02/2025 11:31 AM CDT) Anatomical Region Laterality Modality Breast Bilateral Mammography Luis Tsang MD MAMMO ORDERABLES Final Result from Last 3 Months Insurance [employer] PPO MCR Care Teams Hog Tender Relationship Specialty Start Date End Date Corinna Hines MD [facility] [facility] [place] [address] PCP - General Family Practice 05/17/23
--- OUTSIDE RECORDS SUMMARY | 2025-06-03 08:45 | XMS_ITS | Clinical Summary ---
Author Organization 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
--- OUTSIDE RECORDS SUMMARY | 2025-06-03 08:45 | XMS_ITS | Referral Summary ---
Author Organization 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
--- OUTSIDE RECORDS SUMMARY | 2025-06-03 08:45 | XMS_ITS | Encounter Summary ---
Author Organization [facility] Address [address] [place] [address] Care Team Providers Care Sales Inspector Name Role Phone Corinna Hines MD Primary Care Provider + Encounter Details Date Type Department Care Team (Late st Contact Info) Description 07/15/2018 Orders Only [facility] Health Information Management [address] [place] [address] Scanning, Provider Social History Tobacco Use Types Packs/Day Years Used Date Smoking Tobacco: Every Day Cigarettes Smokeless Tobacco: Never Alcohol Use Standard Drinks/Week Comments Yes 0 (1 standard drink = 0.6 oz pur e alcohol) 12 per day 2-3 times a week Comments Unknown Sex and Gender Information Value Date Recorded Sex Assigned at Not on file 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
[2025-06-03 09:00] LABS: Hematocrit 41.9 % (37.0-47.0); Hemoglobin 14.0 g/dL (12.0-15.0); Immature Granulocyte Percent A 0.3 % (0-0.5); Lymphocytes Absolute Auto 1.43 K/mm3 (0.9-3.2); Mean Corpuscular HGB Conc 33.4 g/dl (32-36); Mean Corpuscular Hemoglobin 32.1 pg (26-34); Mean Corpuscular Volume 96.1 fl (80-100); Nucleated Red Blood Cells Absolute Auto 0.000 K/mm3 (0.0-0.012); Nucleated Red Blood Cells Perc 0.0 % (0.0-0.2); Platelet Count Result 198 k/mm3 (150-375); Red Blood Count 4.36 M/mm3 (4.2-5.4); White Blood Count 6.2 K/mm3 (4.5-10.0)
[2025-06-03 10:36] LABS: Alanine Aminotransferase 14 U/L (6-35); Albumin Level 4.5 g/dL (3.5-5.1); Alkaline Phosphatase 38 U/L (38-126); Anion Gap 8 mmol/L (4-12); Aspartate Amino Transferase 49 U/L (14-36); Bilirubin,Total 0.6 mg/dL (0.2-1.3); Blood Urea Nitrogen 6 mg/dL (7-17); Calcium 9.9 mg/dL (8.4-10.2); Carbon Dioxide 27 mmol/L (22-30); Chloride 101 mmol/L (98-107); Estimated Glomerular Filt Rate > 60; Glucose 103 mg/dL (65-110); Potassium 4.4 mmol/L (3.4-5.0); Sodium 136 mmol/L (137-145); Total Protein 7.8 g/dL (6.3-8.2)
[2025-06-06 05:29] LABS: CA 15-3. 12 U/mL (<32)
== END 2025-06-03 08:43 | disposition home or self-care (01) ==
PROVIDERS: PCP Family Medicine; Visit Provider Internal Medicine Hematology & Oncology
DX: C50.912 Malignant neoplasm of unspecified site of left female breast (principal); Z17.0 Estrogen receptor positive status [ER+]
CPT/HCPCS: 36415; 80053; 85025; 86300

== ENCOUNTER 2025-10-08 11:14 | Outpatient (CLI) | payer MEDICARE, SELFPAY ==
[2025-10-08 11:41] LABS: Hematocrit 37.6 % (37.0-47.0); Hemoglobin 12.4 g/dL (12.0-15.0); Immature Granulocyte Percent A 0.3 % (0-0.5); Lymphocytes Absolute Auto 1.82 K/mm3 (0.9-3.2); Mean Corpuscular HGB Conc 33.0 g/dl (32-36); Mean Corpuscular Hemoglobin 31.3 pg (26-34); Mean Corpuscular Volume 94.9 fl (80-100); Nucleated Red Blood Cells Absolute Auto 0.000 K/mm3 (0.0-0.012); Nucleated Red Blood Cells Perc 0.0 % (0.0-0.2); Platelet Count Result 218 k/mm3 (150-375); Red Blood Count 3.96 M/mm3 (4.2-5.4); White Blood Count 7.2 K/mm3 (4.5-10.0)
[2025-10-08 11:44] LABS: Schistocytes None Seen
[2025-10-08 11:48] LABS: Anisocytosis 1+; Ovalocytes 1+
--- OUTSIDE RECORDS SUMMARY | 2025-10-08 11:54 | XMS_ITS | Clinical Summary ---
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
--- OUTSIDE RECORDS SUMMARY | 2025-10-08 11:54 | XMS_ITS | Patient Health Record ---
Author Organization [facility] Address [address] [place] [address] Care Team Providers Care Surgery Tech Name Role Phone Yelitza Woods Unavailable [phone] Reason For Referral No Information Medications Medication SIG (Take, Route, Frequency, Duration) Notes Start Date End Date Status Ezetimibe 10 MG Tablet Oral 10/03/2021 Active amLODIPine Besylate 5 MG Tablet Oral 10/03/2021 Active Metoprolol Succinate ER 100 MG Tablet Extended Release 24 Hour Oral 10/03/2021 Active Immunizations Vaccine Route Administration Date Status Comme nts Influenza, unspecified formulation Unknown 08/12/2020 A dministered Novel [id number], preservative free Unknown 07/30/2018 Administered Pfizer Biontech Covid-19 Vac cine 2nd dose Unknown 01/26/2021 Administered Pfizer Biontech Covid-19 Vac cine 2nd dose Unknown 02/16/2021 Administered Pneumococcal conjugate PCV 13 Unknown 06/16/2019 Admini stered Pneumococcal polysaccharide PPV23 Unknown 06/21/2020 Ad ministered Zoster Unknown 07/31/2019 Administered Zoster Unknown 10/30/2019 Administered Social History Social History Additional Details Category Social Info Options Details Migrated Social History Migrated Social History Alcohol Intake: Moderate 08/14/2021,Tobacco Years: Current every day smoker 08/14/2021 Plan Of Treatment No Information Insurance Providers Payer Name Payer Address Payer Phone Subscriber Number Group Number Insured Name Patient Relationship to Insured Coverage Start Date Coverage End Date [employer] Replacemen t/Advantag e - [place] [address] [place] [phone] [id number] LAVINIA VILLALTA Self - patient is the insured
--- OUTSIDE RECORDS SUMMARY | 2025-10-08 11:54 | XMS_ITS | Clinical Summary ---
Author Organization [facility] Administrative [facility]ices Address [address] [place] [address] Care Team Providers Care Hand Sign Writer Name Role Phone Corinna Hines MD Primary Care Provider [phone] Allergies Active Allergy Reactions Criticality Noted Date Comments Bupropion Nausea and Vomiting Low 07/10/2018 Latex Nausea and Vomiting Low 07/10/2018 Wjmfgmp-Mgh-Nag Reductase Inhibitors Unknown High 07/10/2018 Abnormal liver [...] Encounters Date Type Department Care Team Description 09/22/2025 External Device Data [facility] ABSTRACTION Provider, Abstract 09/21/2025 External Device Data [facility] ABSTRACTION Provider, Abstract 08/24/2025 External Device Data [facility] ABSTRACTION Provider, Abstract 08/17/2025 External Device Data [facility] ABSTRACTION Provider, Abstract from Last 3 Months Family History Medical History Relation Name Comments Muscle Cancer Father Pancreatic Cancer Mother Relation Name Status Comments Brother 1 Alive Brother 2 Alive Daughter 1 Alive Daughter 2 Alive Father Mother Sister Alive Social History Tobacco Use Types Packs/Day Years Used Date Smoking Tobacco: Every Day Cigarettes 0.5 51.3 Started: 06/16/1974 Smokeless Tobacco: Never Alcohol Use [...] Sign Reading Time Taken Comments Blood Pressure 151/86 06/17/2025 2:20 PM CDT Pulse 63 06/17/2025 2:17 PM CDT Temperature 36.9 C (98.4 F) 06/17/2025 2:17 PM CDT Respiratory Rate 15 06/17/2025 2:17 PM CDT Oxygen Saturation 94% 06/17/2025 2:17 PM CDT Inhaled Oxygen Concentration - - Weight 53.5 kg (118 lb) 06/17/2025 2:17 PM CDT Height 147.3 cm (4' 10) 05/17/2023 2:19 PM CDT Body Mass Index 24.66 05/17/2023 2:19 PM CDT Plan of Treatment Upcoming Encounters Date Type Department Care Team (Late st Contact Info) Description 10/20/2025 1:15 PM HOME CARE PROVIDER Office Visit [facility] Oncology and Hematology - [place] [address] [facility] [address] [place] [address] Luis Tsang MD [address] [facility] [address] [place] [address] Health Maintenance Due Date Last [...] 11:31 AM CDT from Last 3 Months or Most Recently Relevant to Health Maintenance Results * MAMMO SCREENING BILAT (04/02/2025 11:31 AM CDT) Anatomical Region Laterality Modality Breast Bilateral Mammography Luis Tsang MD MAMMO ORDERABLES Final Result from Last 3 Months or Most Recently Relevant to Health Maintenance Insurance [employer] PPO MCR Care Teams Hand Sign Writer Relationship Specialty Start Date End Date Corinna Hines MD [facility] [facility] [address] [place] [phone] PCP - General Family Practice 05/17/23
--- OUTSIDE RECORDS SUMMARY | 2025-10-08 11:54 | XMS_ITS | Encounter Summary ---
Author Organization [facility] Address [address] [place] [address] Care Team Providers Care Etl Developer Name Role Phone Corinna Hines MD Primary Care Provider + Encounter Details Date Type Department Care Team (Late st Contact Info) Description 07/15/2018 Orders Only [facility] Health Information Management [address] [place] [address] Scanning, Provider Social History Tobacco Use Types Packs/Day Years Used Date Smoking Tobacco: Every Day Cigarettes Smokeless Tobacco: Never Alcohol Use Standard Drinks/Week Comments Yes 0 (1 standard drink = 0.6 oz pur e alcohol) 12 per day 2-3 times a week Comments Unknown Sex and Gender Information Value Date Recorded Sex Assigned at Not on file Legal Sex Female 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
[2025-10-08 13:20] LABS: Alanine Aminotransferase 14 U/L (6-35); Albumin Level 4.6 g/dL (3.5-5.1); Alkaline Phosphatase 42 U/L (38-126); Anion Gap 10 mmol/L (4-12); Aspartate Amino Transferase 39 U/L (14-36); Bilirubin,Total 0.7 mg/dL (0.2-1.3); Blood Urea Nitrogen 7 mg/dL (7-17); Calcium 9.3 mg/dL (8.4-10.2); Carbon Dioxide 24 mmol/L (22-30); Chloride 104 mmol/L (98-107); Estimated Glomerular Filt Rate > 60; Glucose 109 mg/dL (65-110); Potassium 4.0 mmol/L (3.4-5.0); Sodium 138 mmol/L (137-145); Total Protein 8.0 g/dL (6.3-8.2)
== END 2025-10-08 11:15 | disposition home or self-care (01) ==
LOC: ANHLAB 11:15
PROVIDERS: PCP Family Medicine; Visit Provider Internal Medicine Hematology & Oncology
DX: C50.912 Malignant neoplasm of unspecified site of left female breast (principal); Z17.0 Estrogen receptor positive status [ER+]
CPT/HCPCS: 36415; 80053; 85025; 86300